=== PATIENT | male | born 2000 | race Caucasian/White ===

== ENCOUNTER 2018-01-06 15:58 | Emergency (ER) | payer BC, OTHER ==
[~2018-01-06] VITALS: Ht 185.4 cm; Wt 83.9 kg
[~2018-01-06 15:58] MED LIST: IBUPROFEN 600600 M1 PO; NAPROSYN500 MG PO
[2018-01-06 17:03] LABS: BASOPHILS 0.3 % (0.0-2.0); EOSINOPHILS 3.7 % (0.0-3.0); HEMATOCRIT 43.6 % (42.0-52.0); LYMPHOCYTES 27.1 % (24.0-44.0); MCH 30.8 pg (26.0-34.0); MCHC 34.4 g/dL (28.0-37.0); MCV 89.7 fL (80.0-100.0); MONOCYTES 8.5 % (1.0-8.0); PLATELET COUNT 207 thou/uL (150-400); POLYS 60.4 % (36.0-66.0); RBC 4.86 mil/uL (4.50-6.00)
[2018-01-06 17:12] LABS: CALCIUM 9.3 mg/dL (8.5-10.1); POTASSIUM 4.1 mmol/L (3.5-5.1)
[2018-01-06 17:17] LABS: URINE BILIRUBIN NEGATIVE (Negative); URINE BLOOD NEGATIVE (Negative); URINE CLARITY CLEAR; URINE COLOR YELLOW; URINE GLUCOSE-RANDOM* NEGATIVE (Negative); URINE KETONES NEGATIVE (Negative); URINE LEUKOCYTES NEGATIVE (Negative); URINE NITRITE NEGATIVE (Negative); URINE PROTEIN (DIPSTICK) NEGATIVE (Negative); URINE SPECIFIC GRAVITY 1.025 (1.005-1.035); URINE UROBILINOGEN 0.2 E.U./dl (0.2-1.0)
[2018-01-06 17:18] LABS: ALBUMIN 4.1 g/dL (3.4-5.0); TOTAL BILIRUBIN 0.4 mg/dL (<0.1-1.0); TOTAL PROTEIN 7.3 g/dL (6.4-8.2)
[2018-01-06] MEDS ORDERED: CARAFATE 1 GM TA1 G1 PO (17:23)
[2018-01-06] MEDS ORDERED: FAMOTIDINE20 MG PO (17:23)
[2018-01-06 17:54] VITALS: BP 111/57
== END 2018-01-06 17:55 | disposition home or self-care (01) ==
LOC: ER 15:58
PROVIDERS: Physician Assistant
DX: R10.13 Epigastric pain (principal); J45.909 Unspecified asthma, uncomplicated; Z88.8 Allergy status to other drugs, medicaments and biological substances

== ENCOUNTER 2019-03-19 10:08 | Emergency (ER) | payer BC, OTHER ==
[~2019-03-19] VITALS: Ht 180.3 cm; Wt 78.0 kg
[~2019-03-19 10:08] MED LIST changes: +CARAFATE 1 GM TA1 G1 PO; +FAMOTIDINE20 MG PO
[2019-03-19 10:37] LABS: URINE BLOOD TRACE (Negative); URINE CLARITY CLEAR; URINE COLOR YELLOW; URINE GLUCOSE-RANDOM* NEGATIVE (Negative); URINE KETONES TRACE (Negative); URINE LEUKOCYTES-REFLEX NEGATIVE (Negative); URINE NITRITE-REFLEX NEGATIVE (Negative); URINE PROTEIN (DIPSTICK) TRACE (Negative)
[2019-03-19 10:46] LABS: ICTOTEST (BILI CONFIRMATORY) Negative (Negative); URINE BILIRUBIN NEGATIVE (Negative)
[2019-03-19 10:54] LABS: HEMATOCRIT 46.5 % (42.0-52.0); HEMOGLOBIN 15.8 gm/dL (14.0-18.0); MCH 30.4 pg (26.0-34.0); MCHC 33.9 g/dL (28.0-37.0); MCV 89.6 fL (80.0-100.0); PLATELET COUNT 202 thou/uL (150-400); RBC 5.19 mil/uL (4.50-6.00); RDW 12.8 % (10.5-14.5); WBC 11.2 thou/uL (4.0-11.0)
[2019-03-19 11:09] LABS: CALCIUM 9.6 mg/dL (8.5-10.1); CREATININE 1.1 mg/dL (0.7-1.3); POTASSIUM 3.5 mmol/L (3.5-5.1)
[2019-03-19 11:15] LABS: ALBUMIN 4.4 g/dL (3.4-5.0); TOTAL PROTEIN 7.7 g/dL (6.4-8.2)
[2019-03-19 11:36] LABS: ABSOLUTE NEUTROPHILS 5.4 thou/uL (1.4-8.2)
[2019-03-19] MEDS ORDERED: ONDANSETRON HCL4 M2 PO (13:06)
[2019-03-19] MEDS ORDERED: AUGMENTIN 875-1 EACH PO (13:06)
[2019-03-19 13:07] VITALS: BP 95/77
== END 2019-03-19 13:07 | disposition home or self-care (01) ==
LOC: ER 10:08
PROVIDERS: Physician Assistant
DX: K52.9 Noninfective gastroenteritis and colitis, unspecified (principal); J45.909 Unspecified asthma, uncomplicated; Z88.8 Allergy status to other drugs, medicaments and biological substances